=== PATIENT | male | born 1960 | race Asian ===

== ENCOUNTER 2018-01-31 08:19 | Day surgery (SDC) | payer BC ==
[~2018-01-31 08:19] MED LIST: BUPIVAC MPF-EPI 0.5%-1:200000 30 ML VIAL. ONE; HYDROmorphone 2 MG/ML VIAL IV PRN; IV RINGERS,LACTATED 1000ML 1,000 ML IV SCH; LIDOCAINE 1% PF 2 ML VIAL. ID PRN; MELO15TA23 PO; MORPHINE SULFATE 2 MG/ML VIAL. IV PRN; ONDANSETRON PF 4 MG/2 ML VIAL. IV PRN; PROCHLORPERAZINE 10 MG/2 ML VIAL. IV PRN; fentaNYL PF VIAL 100 MCG/2 ML VIAL IV PRN
[2018-01-31] MEDS ORDERED: LIDOCAINE 2% PF Vial for OR 5 ML VIAL. ONE (08:32)
[2018-01-31] MEDS ORDERED: PROPOFOL 20 ML IV ONE (08:32)
[2018-01-31] MEDS ORDERED: fentaNYL PF VIAL 100 MCG/2 ML VIAL ONE (08:32)
[2018-01-31] MEDS ORDERED: ONDANSETRON PF 4 MG/2 ML VIAL. ONE (10:02)
[2018-01-31] MEDS ORDERED: DEXAMETHASONE SOD PHOS 20 MG/5 ML VIAL. ONE (10:02)
[2018-01-31] MEDS ORDERED: SEVOFLURANE 31 TO 60 MINUTES. IH ONE (10:02)
[2018-01-31] MEDS ORDERED: ePHEDrine PF IN SALINE 50 MG/5 ML DISP.SYRIN IV ONE (10:23)
--- NOTE | 2018-01-31 11:10 | PDOC ---
BRIEF OPERATIVE NOTE Date: Jan 31, 2018 Pre-Op Diagnosis left inguinal hernia Post-Op Diagnosis same, indirect Procedure Performed repair with mesh Surgeon Loyd Anesthesia Type: General (LMA) Blood Loss 5cc IV Fluid 700cc Specimens Obtained none Findings indirect hernia sack, some laxity of the inguinal floor Complications none Operative Note WK # [id number] IDALIA MARS MD Jan 31, 2018 11:10
[2018-01-31] MEDS ORDERED: HYDROcodone/APAP 5/325MG 1 TAB TABLET PO ONE (11:15)
--- NOTE | 2018-01-31 11:26 | OP ---
DATE OF SURGERY: 01/31/2018 PREOPERATIVE DIAGNOSIS: Left inguinal hernia. POSTOPERATIVE DIAGNOSIS: Left inguinal hernia, indirect. PROCEDURE: Repair with mesh. SURGEON: Gerardo Mars MD ANESTHESIA: General LMA. ESTIMATED BLOOD LOSS: 5 mL. INTRAVENOUS: 700 mL. INDICATIONS: The patient is a 57-year-old with left inguinal fullness and pain, brought for repair. OPERATIVE FINDINGS: An indirect hernia sac was identified. There was some laxity of the inguinal floor. DESCRIPTION OF PROCEDURE: The patient brought to the operating suite and given a general anesthetic with LMA. The left groin was prepped and draped in usual sterile fashion. A 0.5% Marcaine with epinephrine was infiltrated along the incision line. Incision made and dissection carried down to the external oblique fascia. This was opened in direction of its fibers and the cord was stripped off the pubis. Dominic drain placed around it and dissection carried back to the internal ring where an indirect hernia sac was identified, skeletonized and reduced. This was held in reduction with a large plug of Phasix mesh, tacked with a single 2-0 PDS stitch, taking care to avoid injury to adjacent vessels. Some laxity of the inguinal floor was loosely imbricated with a running stitch of 0 Vicryl. A keyhole patch was then fashioned and placed over the floor. The slit closed with a single 2-0 PDS stitch. When a correct sponge count was obtained and hemostasis was present, the cord was returned to its normal anatomical position. External oblique fascia closed over a running fashion with 3-0 Vicryl. Subcutaneous approximated with 3-0 Vicryl, skin closed with subcuticular 4-0 Monocryl. Steri-Strips and a sterile dressing applied. Prior to emergence from anesthesia, digital rectal exam failed to reveal evidence of prostatic enlargement or nodularity. The patient was awakened from his anesthetic and taken to the recovery room in satisfactory condition. GERARDO MARS MD DR: JANE/cecy JOB#: [id number] / [id number]
--- NOTE | 2018-01-31 11:42 | DISCH ---
DISCHARGE INSTRUCTIONS Condition on Discharge Condition on Discharge: Stable Activity After Discharge Activity Instructions for Disc: Activity as tolerated, Avoid exertion Lifting Instructions after Dis: No heavy lifting Driving Instructions after Dis: Do not drive (3-4 days) Diet after Discharge Diet after Discharge: Regular Wound Incision Care Wound/Incision Care: Ice to area for comfort Other wound/incision instructi: june shower Monday Follow-Up Follow up with: Loyd next week Follow Up With: Needs to find a PCP to Rx HPT IDALIA MARS MD Jan 31, 2018 11:42
[2018-01-31] MEDS ORDERED: HYDR-3164 PO (11:53)
[2018-01-31] MEDS ORDERED: DOCU50CA9 PO (11:53)
[2018-01-31 12:00] VITALS: BP 178/105
== END 2018-01-31 12:45 | disposition home or self-care (01) ==
LOC: SURG 08:19
PROVIDERS: ATTEND Surgery
DX: K40.90 Unilateral inguinal hernia, without obstruction or gangrene, not specified as recurrent (principal); Z79.899 Other long term (current) drug therapy
CPT/HCPCS: 49505; A7015; C1781; J0690; J1100; J2001; J2405; J2704; J3010; J3490

== ENCOUNTER 2019-06-24 11:54 | Emergency (ER) | payer BC ==
[~2019-06-24] VITALS: Ht 177.8 cm; Wt 77.2 kg
[~2019-06-24 11:54] MED LIST changes: -BUPIVAC MPF-EPI 0.5%-1:200000 30 ML VIAL. ONE; +DOCU50CA9 PO; +HYDR-3164 PO; -HYDROmorphone 2 MG/ML VIAL IV PRN; -IV RINGERS,LACTATED 1000ML 1,000 ML IV SCH; -LIDOCAINE 1% PF 2 ML VIAL. ID PRN; -MORPHINE SULFATE 2 MG/ML VIAL. IV PRN; -ONDANSETRON PF 4 MG/2 ML VIAL. IV PRN; -PROCHLORPERAZINE 10 MG/2 ML VIAL. IV PRN; -fentaNYL PF VIAL 100 MCG/2 ML VIAL IV PRN
[2019-06-24 12:45] VITALS: BP 120/83
[2019-06-24 12:59] LABS: BASO % 0 % (0-3); EOS % 0 % (0-3); HEMOGLOBIN 13.9 g/dL (13.0-17.5); LYMPH # 0.9 x10^3/uL (1.0-4.8); LYMPH % 13 % (24-48); MEAN CORPUSCULAR HEMOGLOBIN 29 pg (25-35); MEAN CORPUSCULAR HGB CONC 33 g/dL (31-37); MEAN CORPUSCULAR VOLUME 89 fL (79-100); MONO # 0.8 x10^3/uL (0.0-1.1); MONO % 12 % (0-9); NEUT # 5.1 x10^3/uL (1.8-7.7); NEUT % 75 % (31-73); PLATELET COUNT 104 x10^3/uL (140-400); RED BLOOD COUNT 4.74 x10^6/uL (4.30-5.70); RED CELL DISTRIBUTION WIDTH 12.5 % (11.5-14.5); WHITE BLOOD COUNT 6.8 x10^3/uL (4.0-11.0)
[2019-06-24 13:12] LABS: CALCIUM 8.4 mg/dL (8.5-10.1); CREATININE 1.5 mg/dL (0.7-1.3); GFR 48.4; POTASSIUM 3.8 mmol/L (3.5-5.1)
[2019-06-24 13:27] LABS: CREATINE KINASE 55 U/L (39-308)
[2019-06-24 13:28] LABS: ALBUMIN 2.9 g/dL (3.4-5.0); ALBUMIN/GLOBULIN RATIO 0.8 (1.0-1.7); C-REACTIVE PROTEIN 118.6 mg/L (0-3.3); MAGNESIUM 2.1 mg/dL (1.8-2.4); TOTAL BILIRUBIN 1.3 mg/dL (0.2-1.0); TOTAL PROTEIN 6.7 g/dL (6.4-8.2)
--- NOTE | 2019-06-24 13:29 | PHYS DOC ---
Past Medical History Past Medical History: No Pertinent History Past Surgical History: Appendectomy Smoking Status: Never Smoker Alcohol Use: None General Adult EDM: Chief Complaint: WEAKNESS/GENERALIZED HPI: HPI: Patient is a 58 year old male who presents to the ED today complaining of generalized weakness and feeling ill for 1 week. Patient denies any fever, cough, congestion, chest pain or shortness of breath. Patient is Palestinian speaking and electro mechanic line is being used for Palestinian with very poor communication. Review of Systems: Review of Systems: Constitutional: Reports not feeling well. Denies fever or chills. [] Eyes: Denies change in visual acuity. [] HENT: Denies nasal congestion or sore throat. [] Respiratory: Denies cough or shortness of breath. [] Cardiovascular: Denies chest pain or edema. [] GI: Denies abdominal pain, nausea, vomiting, bloody stools or diarrhea. [] : Denies dysuria. [] Musculoskeletal: Denies back pain or joint pain. [] Integument: Denies rash. [] Neurologic: Reports generalized weakness. Denies headache, sensory changes. [] Endocrine: Denies polyuria or polydipsia. [] Lymphatic: Denies swollen glands. [] Psychiatric: Denies depression or anxiety. [] Heart Score: Risk Factors: Risk Factors: DM, Current or recent (<one month) smoker, HTN, HLP, family history of CAD, obesity. Risk Scores: Score 0 - 3: 2.5% MACE over next 6 weeks - Discharge Home Score 4 - 6: 20.3% MACE over next 6 weeks - Admit for Clinical Observation Score 7 - 10: 72.7% MACE over next 6 weeks - Early Invasive Strategies Allergies: Allergies: Allergies Coded Allergies Type Severity Reaction Last Updated Verified No Known Drug Allergies 01/31/18 No Physical Exam: PE: Constitutional: Well developed, well nourished, no acute distress, non-toxic appearance. [] HENT: Normocephalic, atraumatic, bilateral external ears normal, oropharynx moist, no oral exudates, nose normal. [] Eyes: PERRLA, EOMI, conjunctiva normal, no discharge. [] Neck: Normal range of motion, no tenderness, supple, no stridor. [] Cardiovascular:Heart rate regular rhythm, no murmur [] Lungs & Thorax: Bilateral breath sounds clear to auscultation [] Abdomen: Bowel sounds normal, soft, no tenderness, no masses, no pulsatile masses. [] Skin: Warm, dry, no erythema, no rash. [] Back: No tenderness, no CVA tenderness. [] Extremities: No tenderness, no cyanosis, no clubbing, ROM intact, no edema. [] Neurologic: Alert and oriented X 3, normal motor function, normal sensory function, no focal deficits noted. Cranial nerves II through XII intact Psychologic: Affect normal, judgement normal, mood normal. [] Current Patient Data: Labs: Laboratory Tests Test 06/24/19 12:45 White Blood Count 6.8 x10^3/uL (4.0-11.0) Red Blood Count 4.74 x10^6/uL (4.30-5.70) Hemoglobin 13.9 g/dL (13.0-17.5) Hematocrit 42.0 % (39.0-53.0) Mean Corpuscular Volume 89 fL (79-100) Mean Corpuscular Hemoglobin 29 pg (25-35) Mean Corpuscular Hemoglobin Concent 33 g/dL (31-37) Red Cell Distribution Width 12.5 % (11.5-14.5) Platelet Count 104 x10^3/uL (140-400) L Neutrophils (%) (Auto) 75 % (31-73) H Lymphocytes (%) (Auto) 13 % (24-48) L Monocytes (%) (Auto) 12 % (0-9) H Eosinophils (%) (Auto) 0 % (0-3) Basophils (%) (Auto) 0 % (0-3) Neutrophils # (Auto) 5.1 x10^3/uL (1.8-7.7) Lymphocytes # (Auto) 0.9 x10^3/uL (1.0-4.8) L Monocytes # (Auto) 0.8 x10^3/uL (0.0-1.1) Eosinophils # (Auto) 0.0 x10^3/uL (0.0-0.7) Basophils # (Auto) 0.0 x10^3/uL (0.0-0.2) Sodium Level 140 mmol/L (136-145) Potassium Level 3.8 mmol/L (3.5-5.1) Chloride Level 104 mmol/L (98-107) Carbon Dioxide Level 26 mmol/L (21-32) Anion Gap 10 (6-14) Blood Urea Nitrogen 31 mg/dL (8-26) H Creatinine 1.5 mg/dL (0.7-1.3) H Estimated GFR (Cockcroft-Gault) 48.4 BUN/Creatinine Ratio 21 (6-20) H Glucose Level 114 mg/dL (70-99) H Calcium Level 8.4 mg/dL (8.5-10.1) L Magnesium Level Pending Ferritin Pending Total Bilirubin Pending Aspartate Amino Transferase (AST) Pending Alanine Aminotransferase (ALT) Pending Alkaline Phosphatase Pending Troponin I Quantitative < 0.017 ng/mL (0.000-0.055) C-Reactive Protein, Quantitative Pending Total Protein Pending Albumin Pending Albumin/Globulin Ratio Pending Thyroid Stimulating Hormone (TSH) 1.205 uIU/mL (0.358-3.74) Laboratory Tests 06/24/19 12:45 Laboratory Tests 06/24/19 12:45 Vital Signs: Vital Signs Date Time Temp Pulse Resp B/P (MAP) Pulse Ox O2 Delivery O2 Flow Rate FiO2 06/24/19 12:45 98.3 85 16 120/83 (95) 99 Room Air 98.3 EKG: EKG: [] Radiology/Procedures: Radiology/Procedures: []PROCEDURE: PORTABLE CHEST 1V Single view of the chest. 06/24/2019 12:49 PM Indication: Weakness Comparison: None available Findings: There is no focal consolidation. What appear to be nipple shadows are seen bilaterally. There is no pleural effusion or pneumothorax. Heart size is normal. No acute osseous abnormalities are seen. Impression: 1. Probable bilateral nipple shadows. Follow-up radiographs with nipple markers could be obtained for further evaluation. 2. Otherwise no evidence of acute cardiopulmonary process. Electronically signed by: Rolando Deleon MD (06/24/2019 1:39 PM) [id number] DICTATED and SIGNED BY: ROLANDO DELEON MD DATE: 06/24/19 1330 Course & Med Decision Making: Course & Med Decision Making Pertinent Labs and Imaging studies reviewed. (See chart for details) This is a 58-year-old male patient presented to the ED today complaining of generalized weakness and not feeling well for 1 week. Patient is Palestinian s peaking and interpretation is provided by electro mechanic line documentation has been very difficult. Patient tends to answer the questions with the same answer no. CBC with a normal WBC, CMP with creatinine of 1.5, BUN is 31, no previous labs available for comparison, patient was given IV fluids in the ED. Ferritin 551, C-reactive 118.6, patient was tested for COVID19. Results will be called to h im. Bilirubin 1.3, AST 64, ALT 119, patient has no abdominal pain or tenderness. Chest x-ray interpreted by radiologist was negative for any acute findings. Discharge to home. Follow-up with PCP in the course of this week. Dragon Disclaimer: Dragon Disclaimer: This electronic medical record was generated, in whole or in part, using a voice recognition dictation system. Departure Departure Impression: Primary Impression: Generalized weakness Additional Impressions: ARF (acute renal failure) Qualified Codes: N17.9 - Acute kidney failure, unspecified Dehydration Disposition: HOME, SELF-CARE Condition: STABLE Referrals: RUSSELL CARDOSO (PCP) follow up in the course of this week Patient Instructions: Dehydration, Adult, Weakness, [id number] Additional Instructions: You were evaluated in the emergency room for generalized weakness. We tested you for COVID19, we will call you if your results are positive. You were noted to be dehydrated, please push fluids. Please follow-up with your doctor in 1 week. CRISTI OSORIO APRN June 24, 2019 13:29
[2019-06-24] MEDS ORDERED: IV NORMAL SALINE 1000ML BAG 1,000 ML IV ONE (13:30)
--- NOTE | 2019-06-24 13:30 | EKG ---
[facility] [address] [place] [address] Test Date: 2019-06-24 Test Time: 12:29:56 Pat Name: CARLOS DAVID Department: Room: Gender: M Bill Cutter: : 1960 Requested By: CRISTI OSORIO Order Number: [id number] Reading MD: Pedro Luis Sheldon Measurements Intervals [place] Rate: 80 P: 66 [place]: 136 QRS: 73 QRSD: 102 T: 42 QT: 362 QTc: 421 Interpretive Statements SINUS RHYTHM LEFT ATRIAL ABNORMALITY Electronically Signed On 06-25-2019 8:41:55 CDT by Pedro Luis Sheldon
--- NOTE | 2019-06-24 13:42 | RAD ---
Single view of the chest. 06/24/2019 12:49 PM Indication: Weakness Comparison: None available Findings: There is no focal consolidation. What appear to be nipple shadows are seen bilaterally. There is no pleural effusion or pneumothorax. Heart size is normal. No acute osseous abnormalities are seen. Impression: 1. Probable bilateral nipple shadows. Follow-up radiographs with nipple markers could be obtained for further evaluation. 2. Otherwise no evidence of acute cardiopulmonary process. Electronically signed by: Rolando Smith MD (06/24/2019 1:39 PM) [id number]
== END 2019-06-24 16:02 | disposition home or self-care (01) ==
LOC: ER 11:54
DX: N17.9 Acute kidney failure, unspecified (principal); E86.0 Dehydration; R53.1 Weakness; Z90.89 Acquired absence of other organs
CPT/HCPCS: 36415; 71045; 80053; 82553; 82728; 83735; 83880; 84443; 84484; 85025; 86140; 93005; 96360; 99285; J7030; U0003-CS